=== PATIENT | male | born 1970 | race Caucasian/White ===

== ENCOUNTER → 2016-11-13 | Outpatient (CLI) | payer OTHER ==
[~2016-11-13] MED LIST: DAYPRO600 M1 PO; MOTRIN800 MG PO
[2016-11-13 10:10] LABS: HEMATOCRIT 43.2 % (42.0-52.0); HEMOGLOBIN 14.2 g/dl (14.0-18.0); MEAN CELL VOLUME 86.7 fl (80.0-94.0); MEAN CORPUSCULAR HGB 28.5 pg (27.0-31.0); MEAN CORPUSCULAR HGB CONC 32.9 g/dl (33.0-37.0); MEAN PLATELET VOLUME 10.4 fl (9.6-12.3); RED BLOOD COUNT 4.98 10*6/uL (4.50-5.90)
[2016-11-13 10:30] LABS: ALBUMIN 3.7 gm/dl (3.1-4.5); BUN 10 mg/dl (7-24); CHLORIDE 105 mmol/L (98-107); CHOLESTEROL 184 mg/dL (<200); CREATININE 0.94 mg/dL (0.70-1.30); POTASSIUM 3.8 mmol/L (3.5-5.1); SGOT/AST 25 IU/L (3-35); SGPT/ALT 43 U/L (12-78); SODIUM 141 mmol/L (136-145); TOTAL PROTEIN 7.9 gm/dL (6.4-8.2); TRIGLYCERIDES 73 mg/dl (<150); VLDL CHOLESTEROL 15 mg/dL (6-40)
[2016-11-13 10:31] LABS: ALKALINE PHOSPHATASE 69 U/L (45-117); HDL CHOLESTEROL 42 mg/dl (40-60); LDL CHOLESTEROL 127 mg/dL (9-159)
== END | disposition home or self-care (01) ==
LOC: LAB 09:05
PROVIDERS: Family Medicine
DX: K21.9 Gastro-esophageal reflux disease without esophagitis (principal); R53.83 Other fatigue; G47.00 Insomnia, unspecified; E78.00 Pure hypercholesterolemia, unspecified

== ENCOUNTER → 2019-08-06 | Outpatient (CLI) | payer OTHER ==
[2019-08-06 11:00] LABS: HEMATOCRIT 33.6 % (42.0-52.0); MEAN CELL VOLUME 63.8 fl (80.0-94.0); MEAN CORPUSCULAR HGB 18.4 pg (27.0-31.0); MEAN CORPUSCULAR HGB CONC 28.9 g/dl (33.0-37.0); MEAN PLATELET VOLUME 11.3 fl (9.6-12.3); RED BLOOD COUNT 5.27 10*6/uL (4.50-5.90); WHITE BLOOD COUNT 9.6 10*3/uL (4.8-10.8)
[2019-08-06 11:22] LABS: ALBUMIN 3.6 gm/dl (3.1-4.5); ALKALINE PHOSPHATASE 77 U/L (45-117); BUN 12 mg/dl (7-24); CHLORIDE 105 mmol/L (98-107); CHOLESTEROL 149 mg/dL (<200); CREATININE 0.85 mg/dL (0.70-1.30); HDL CHOLESTEROL 31 mg/dl (40-60); LDL CHOLESTEROL 105 mg/dL (9-159); SGOT/AST 16 IU/L (3-35); SGPT/ALT 25 U/L (12-78); SODIUM 138 mmol/L (136-145); TRIGLYCERIDES 64 mg/dl (<150); VLDL CHOLESTEROL 13 mg/dL (6-40)
== END | disposition home or self-care (01) ==
LOC: LAB 10:26
PROVIDERS: Family Medicine
DX: Z12.5 Encounter for screening for malignant neoplasm of prostate (principal); Z13.220 Encounter for screening for lipoid disorders; E74.9 Disorder of carbohydrate metabolism, unspecified; E66.9 Obesity, unspecified

== ENCOUNTER → 2019-08-20 | Outpatient (CLI) | payer OTHER ==
[2019-08-20 12:43] LABS: RETICULOCYTE % 0.81 % (0.50-2.50)
[2019-08-20 12:55] LABS: IRON 17 ug/dL (65-175); TOTAL IRON BINDING CAPACITY 347 ug/dl (250-450)
== END | disposition home or self-care (01) ==
LOC: LAB 12:16
PROVIDERS: Family Medicine
DX: R53.82 Chronic fatigue, unspecified (principal); D64.9 Anemia, unspecified

== ENCOUNTER → 2019-12-17 | Outpatient (CLI) | payer OTHER ==
[~2019-12-17] MED LIST changes: +CIPROFLOXACIN500 M4 PO; +FEROSUL325 MG PO; +METRONIDAZOLE500 M1 PO
[2019-12-17 14:17] LABS: HEMATOCRIT 42.3 % (42.0-52.0); MEAN CORPUSCULAR HGB 27.4 pg (27.0-31.0); MEAN CORPUSCULAR HGB CONC 31.9 g/dl (33.0-37.0); MEAN PLATELET VOLUME 9.9 fl (9.6-12.3); RED BLOOD COUNT 4.92 10*6/uL (4.50-5.90); RED CELL DISTRI WIDTH 15.9 % (0-14.5); WHITE BLOOD COUNT 9.7 10*3/uL (4.8-10.8)
[2019-12-17 14:48] LABS: ALBUMIN 3.6 gm/dl (3.1-4.5); ALKALINE PHOSPHATASE 68 U/L (45-117); BUN 8 mg/dl (7-24); CHLORIDE 104 mmol/L (98-107); CHOLESTEROL 173 mg/dL (<200); CREATININE 0.73 mg/dL (0.70-1.30); HDL CHOLESTEROL 44 mg/dl (40-60); LDL CHOLESTEROL 111 mg/dL (9-159); POTASSIUM 3.6 mmol/L (3.5-5.1); SGOT/AST 14 IU/L (3-35); SGPT/ALT 19 U/L (12-78); SODIUM 140 mmol/L (136-145); TOTAL PROTEIN 7.4 gm/dL (6.4-8.2); TRIGLYCERIDES 91 mg/dl (<150); VLDL CHOLESTEROL 18 mg/dL (6-40)
== END | disposition home or self-care (01) ==
LOC: LAB 14:03
PROVIDERS: ATTEND Family Medicine
DX: Z12.5 Encounter for screening for malignant neoplasm of prostate (principal); E78.00 Pure hypercholesterolemia, unspecified; D64.9 Anemia, unspecified; R53.83 Other fatigue

== ENCOUNTER 2020-02-06 07:42 | Inpatient (IN) | payer OTHER ==
[2020-02-06] VITALS (9 sets, daily range): BP systolic 113–153; BP diastolic 72–92
[~2020-02-06] VITALS: Ht 175.2 cm; Wt 104.3 kg
[~2020-02-06 07:42] MED LIST changes: -CIPROFLOXACIN500 M4 PO; -FEROSUL325 MG PO; -METRONIDAZOLE500 M1 PO
[2020-02-06 08:49] LABS: BASO # 0.1 10*3/uL (0.0-0.1); BASO % 0.3 % (0.0-1.0); EOS % 0.1 % (1.0-4.0); HEMATOCRIT 45.7 % (42.0-52.0); LYMPH # 1.3 10*3/uL (1.3-4.4); LYMPH % 7.7 % (27.0-41.0); MEAN CELL VOLUME 86.6 fl (80.0-94.0); MEAN CORPUSCULAR HGB 28.4 pg (27.0-31.0); MEAN CORPUSCULAR HGB CONC 32.8 g/dl (33.0-37.0); MEAN PLATELET VOLUME 10.2 fl (9.6-12.3); MONO # 1.2 10*3/uL (0.1-1.0); MONO % 6.6 % (3.0-9.0); NEUT # 14.8 10*3/uL (2.3-7.9); NEUT % 84.8 % (47.0-73.0); PLATELET COUNT AUTOMATED 366 10*3/uL (130-400); RED BLOOD COUNT 5.28 10*6/uL (4.50-5.90); RED CELL DISTRI WIDTH 15.1 % (0-14.5); WHITE BLOOD COUNT 17.4 10*3/uL (4.8-10.8)
[2020-02-06 08:59] LABS: ACT PARTIAL THROMBO TIME 28.6 SECONDS (20.0-32.1)
[2020-02-06 09:10] LABS: ALBUMIN 3.6 gm/dl (3.1-4.5); ALKALINE PHOSPHATASE 80 U/L (45-117); BUN 6 mg/dl (7-24); CHLORIDE 105 mmol/L (98-107); CREATININE 0.78 mg/dL (0.70-1.30); LIPASE 94 U/L (73-393); POTASSIUM 3.6 mmol/L (3.5-5.1); SGOT/AST 12 IU/L (3-35); SGPT/ALT 20 U/L (12-78); SODIUM 141 mmol/L (136-145); TOTAL PROTEIN 7.9 gm/dL (6.4-8.2); TROPONIN I < 0.015 ng/ml (<0.045)
--- NOTE | 2020-02-06 09:40 | NUR ---
PT REMAINS W/O ACUTE DISTRESS NOTED AWAITING ALL RESULTS FOR ADDITIONAL PLAN OF CARE,SAFETY PRECAUTIONS INTACT AND CALL LIGHT WITHIN REACH.
[2020-02-06 11:17] LABS: BILIRUBIN Negative (Negative); BLOOD 2+ (Negative); CLARITY Clear (Clear); COLOR Yellow (Yellow); GLUCOSE Negative (Negative); KETONE 3+ (Negative); LEUKO ESTERASE Negative (Negative); NITRITE Negative (Negative); SPECIFIC GRAVITY 1.015 (1.001-1.030); UROBILINOGEN 0.2 E.U./dl (0.0-1.0)
[2020-02-06 11:22] LABS: BACTERIA TRACE; EPITHELIAL CELLS 0-2; MUCOUS TRACE; WBC 0-2 wbc/hpf (0-5)
--- NOTE | 2020-02-06 11:22 | NUR ---
PT PROVIDED ADDITIONAL BLANKETS AND REMAINS W/O ACUTE DISTRESS NOTED.
--- NOTE | 2020-02-06 12:00 | NUR ---
PATIENT MEDICATED PER EMAR FOR PAIN. CONT PULSE OX IN PLACE. CALL TEE WITHIN REACH. IV FLUIDS/ANTIBIOTICS INFUSING PER EMAR WITHOUT DIFFICULTY.
--- NOTE | 2020-02-06 12:12 | NUR ---
PT WITH DECREASED PAIN LEVEL AFTER MEDICATION,DOWN TO A 3-4 ON 1-10 PAIN SCALE.
[2020-02-06] MEDS ORDERED: FEROSUL325 MG PO (12:17)
--- NOTE | 2020-02-06 12:40 | NUR ---
SURGERY TO ED FOR PT
--- NOTE | 2020-02-06 17:36 | NUR ---
MSDTime: 1644 A 49 year old admitted to 5E under services of YEE HIGGINS DO. Pt. arrived via bed from ER. Chief complaint: ABD PAIN ACUTE APPENDICITIS. LYNDSAY GOMEZ
--- NOTE | 2020-02-06 20:00 | NUR ---
ALERT ORIENTED X3. NO ACUTE DISTRESS NOTED. TEACHING DONE ON SPLINTING ABD WITH COUGHING/LAUGH/SNEEZING. PT. VOICED UNDERSTANDING INCISION ARE D&I..
[2020-02-07] VITALS: BP 123/78
--- NOTE | 2020-02-07 00:50 | NUR ---
PRN TYLENOL EFFECTIVE. PT TEMP 98.5
--- NOTE | 2020-02-07 02:04 | NUR ---
24 HR chart check completed.
[2020-02-07 06:53] LABS: HEMATOCRIT 42.6 % (42.0-52.0); MEAN CELL VOLUME 86.9 fl (80.0-94.0); MEAN CORPUSCULAR HGB CONC 32.2 g/dl (33.0-37.0); MEAN PLATELET VOLUME 10.5 fl (9.6-12.3); PLATELET COUNT AUTOMATED 363 10*3/uL (130-400); RED CELL DISTRI WIDTH 15.5 % (0-14.5); WHITE BLOOD COUNT 20.1 10*3/uL (4.8-10.8)
[2020-02-07 07:05] LABS: ALKALINE PHOSPHATASE 64 U/L (45-117); CHLORIDE 105 mmol/L (98-107); CREATININE 1.41 mg/dL (0.70-1.30); POTASSIUM 3.8 mmol/L (3.5-5.1); SGOT/AST 8 IU/L (3-35); SGPT/ALT 15 U/L (12-78); SODIUM 138 mmol/L (136-145); TOTAL PROTEIN 7.1 gm/dL (6.4-8.2)
--- NOTE | 2020-02-07 07:07 | NUR ---
PATIENT DID WELL THROUGH SHIFT. ENCOURAGED PATIENT TO BE UP AND SIT IN CHAIR TO EAT BREAKFAST.
[2020-02-07 07:26] LABS: PLATELET SUFFICIENCY NORMAL (NORMAL); TOTAL CELLS COUNTED 100 #CELLS
[2020-02-07 07:37] LABS: BUN 18 mg/dl (7-24)
[2020-02-07 08:00] VITALS: BP 99/64
[2020-02-07 12:00] VITALS: BP 111/76
--- NOTE | 2020-02-07 12:21 | NUR ---
Jacquard Loom Weaver in to talk to patient this morning in room 529-1 Patient states that he lives at home with his There are No steps in the home Physician: Dr. Farr [facility] Home health services: None at this time Patient's level of ADLs: Independent. Still works, No Home Needs Patient has working utilities: All are working DME: None Follow-up physician's appointment after d/c: Per Hospitalist Nurse Director Does patient want to access PORTAL?: Declines Discharge plan discussed with Pt. Pt. plans on returning Home with his . Denies Home Needs. Independent in all aspects of ADL's. Still Drives and Works. ERIKA ESCAMILLA LPN
--- NOTE | 2020-02-07 13:57 | NUR ---
PT INSTRUCTED ON INCENTIVE SPIROMETER. PT ACHEIVED 1500. PT UNDERSTANDS TO USE Q1.
[2020-02-07 16:00] VITALS: BP 135/84
--- NOTE | 2020-02-07 19:47 | NUR ---
1600 PATIENT FELT SWEATY TEMP WAS OBTAINED AND IT WAS 100.3 DR MARTIN MADE AWARE OF NO VOID, ABD DISTENTION, DIZZYNESS, TEMP. CAME UP TO FLOOR TO OBSERVE PATIENT.
--- NOTE | 2020-02-07 19:50 | NUR ---
RESIDENT HAS 250 CC VOID. RESIDENT HAD A LARGE DARK GREEN EMESIS FEELING BAD ALEC OHOKS WAS MADE AWARE OF PATIENTS CONDITION AND GAVE NEW ORDERS FOR IV ATB.
--- NOTE | 2020-02-07 19:57 | NUR ---
SPOKE WITH DR. ELAINE AT THIS TIME. PATIENT HAVING GASTRIC REFLUX AT THIS TIME. NOTIFIED HIM THAT HE HAD EMESIS EARLIER AND HAS HAD REFLUX EVER SINCE. HE STATED THAT HE WOULD PUT SOMETHING IN
[2020-02-07 20:00] VITALS: BP 114/79
--- NOTE | 2020-02-07 21:27 | NUR ---
PATIENT STILL COMPLAINING OF INDIGESTION DESPITE HAVING TUMS. NOTIFED DR. ELAINE AT THIS TIME
--- NOTE | 2020-02-07 22:00 | NUR ---
PATIENT STATES MAALOX EFFECTIVE AT THIS TIME
--- NOTE | 2020-02-07 23:53 | NUR ---
PRN TYLENOL GIVEN FOR PATIENT TEMP OF 100.5. CALL LIGHT WTIHIN REACH, WILL MONITOR
[2020-02-08] VITALS: BP 127/79
--- NOTE | 2020-02-08 02:46 | NUR ---
PATIENT SLEEPING, NO DISTRESS NOTED. BREATHING IS EASY AND REGULAR. CALL LIGHT WTIHIN REACH, WILL MONITOR
--- NOTE | 2020-02-08 03:09 | NUR ---
PATIENT COMPLAINING OF INDIGESTION AT THIS TIME. STATES IT'S REALLY BAD AND HE MIGHT THROW UP AND THE MAALOX WORKED EARLIER. NOTIFIED DR. ELAINE. HE STATED TO GIVE HIM A DOSE OF ZOFRAN AND IF THAT DOESN'T HELP HE WILL GIVE HIM ANOTHER DOSE OF MAALOX BUT THEN HE SHOULD BE GOOD UNTIL MORNING
--- NOTE | 2020-02-08 03:11 | NUR ---
GONZALO JENKINS GIVEN PER REQUEST OF DR. ELAINE FOR PATIENT COMPLAINING OF INDIGESTION WHICH HE SAID WAS GOING TO MAKE HIM THROW UP
--- NOTE | 2020-02-08 03:22 | NUR ---
PATIENT UP TO BATHROOM. STATES HE MOVED HIS BOWELS. STATES IT WAS "ALMOST DIARRHEA".
--- NOTE | 2020-02-08 04:08 | NUR ---
PATIENT STATED ZOFRAN EFFECTIVE
--- NOTE | 2020-02-08 04:26 | NUR ---
24 HR chart check completed.
[2020-02-08 07:07] LABS: MEAN CELL VOLUME 86.2 fl (80.0-94.0); MEAN CORPUSCULAR HGB 28.1 pg (27.0-31.0); MEAN CORPUSCULAR HGB CONC 32.6 g/dl (33.0-37.0); MEAN PLATELET VOLUME 10.6 fl (9.6-12.3); PLATELET COUNT AUTOMATED 403 10*3/uL (130-400); RED BLOOD COUNT 4.99 10*6/uL (4.50-5.90); RED CELL DISTRI WIDTH 15.3 % (0-14.5); WHITE BLOOD COUNT 24.6 10*3/uL (4.8-10.8)
[2020-02-08 07:33] LABS: BASOPHILS 1 % (0-1); TOTAL CELLS COUNTED 100 #CELLS
[2020-02-08 07:36] LABS: PLATELET SUFFICIENCY NORMAL (NORMAL)
[2020-02-08 07:59] LABS: CHLORIDE 101 mmol/L (98-107); CREATININE 1.49 mg/dL (0.70-1.30); POTASSIUM 3.5 mmol/L (3.5-5.1); SODIUM 137 mmol/L (136-145)
[2020-02-08 08:00] VITALS: BP 101/69
[2020-02-08 08:02] LABS: BUN 32 mg/dl (7-24)
--- NOTE | 2020-02-08 08:30 | NUR ---
PT RESTING QUIETLY N BED. NO DISTRESS NOTED. WILL MONITOR
[2020-02-08 12:00] VITALS: BP 105/74
[2020-02-08 16:00] VITALS: BP 125/84
--- NOTE | 2020-02-08 18:13 | NUR ---
PT MEDICATED WITH ZOFRAN FOR NAUSEA, AND MORPHINE FOR PAIN PT RATES PAIN 6/10 WILL MONITOR
--- NOTE | 2020-02-08 18:50 | NUR ---
PT STATES THAT MORPHINE AND ZOFRAN HELPED WILL MONITOR
[2020-02-08 20:00] VITALS: BP 135/87
--- NOTE | 2020-02-08 21:50 | NUR ---
PT RESTING IN BED WITH HOB ELEVATED. RESP-EASY AND REGULAR. PT VOICED USING INCENTIVE SPIROMETER. NO C/O PAIN AT THIS TIME. CALL LIGHT IN REACH. SEE SHIFT ASSESSMENT.
[2020-02-09] VITALS: BP 119/75
--- NOTE | 2020-02-09 00:10 | NUR ---
IVF INFUSING WITH NO PROBLEM. NEW BAG HUNG. CALL LIGHT IN REACH.
--- NOTE | 2020-02-09 05:50 | NUR ---
PT TOLERATING IVF NO PROBLEM. NO C/O AT THIS TIME. CALL LIGHT IN REACH.
[2020-02-09 06:43] LABS: HEMATOCRIT 37.8 % (42.0-52.0); MEAN CELL VOLUME 87.3 fl (80.0-94.0); MEAN CORPUSCULAR HGB 27.7 pg (27.0-31.0); MEAN CORPUSCULAR HGB CONC 31.7 g/dl (33.0-37.0); MEAN PLATELET VOLUME 10.6 fl (9.6-12.3); PLATELET COUNT AUTOMATED 324 10*3/uL (130-400); RED BLOOD COUNT 4.33 10*6/uL (4.50-5.90); RED CELL DISTRI WIDTH 15.1 % (0-14.5); WHITE BLOOD COUNT 15.6 10*3/uL (4.8-10.8)
[2020-02-09 07:06] LABS: ALBUMIN 2.3 gm/dl (3.1-4.5); ALKALINE PHOSPHATASE 46 U/L (45-117); CHLORIDE 108 mmol/L (98-107); CREATININE 0.79 mg/dL (0.70-1.30); POTASSIUM 3.5 mmol/L (3.5-5.1); SGOT/AST 9 IU/L (3-35); SGPT/ALT 10 U/L (12-78); SODIUM 141 mmol/L (136-145); TOTAL PROTEIN 6.2 gm/dL (6.4-8.2)
[2020-02-09 07:08] LABS: BUN 16 mg/dl (7-24)
[2020-02-09 07:50] LABS: BURR CELLS FEW; OVALOCYTES FEW; PLATELET SUFFICIENCY NORMAL (NORMAL); POLYCHROMASIA SLIGHT; TOTAL CELLS COUNTED 100 #CELLS
[2020-02-09 08:00] VITALS: BP 113/68
--- NOTE | 2020-02-09 08:33 | NUR ---
PT RESTING IN BED NO DISTRESS NOTED. WILL MONITOR
[2020-02-09] MEDS ORDERED: CIPROFLOXACIN500 M4 PO (10:39)
[2020-02-09] MEDS ORDERED: METRONIDAZOLE500 M1 PO (10:39)
--- NOTE | 2020-02-09 13:05 | NUR ---
Discharge instructions reviewed with patient/family. Patient receptive and verbalizes understanding. Follow-up care arranged. Written instructions given to patient/family. JOANNE VASQUEZ
== END 2020-02-09 13:07 | disposition home or self-care (01) | DRG 854 ==
LOC: ED 07:42 → EDHOLD 11:58 → 5E 11:58
PROVIDERS: Emergency Medicine; Internal Medicine; Surgery; ADMIT Student in an Organized Health Care Education/Training Program; ATTEND Student in an Organized Health Care Education/Training Program
PROC: 0DTJ4ZZ Resection of Appendix, Percutaneous Endoscopic Approach (ICD-10-PCS; principal; 2020-02-06)
DX: A41.9 Sepsis, unspecified organism (principal); K35.80 Unspecified acute appendicitis; R73.9 Hyperglycemia, unspecified; R31.9 Hematuria, unspecified; E61.1 Iron deficiency; K40.90 Unilateral inguinal hernia, without obstruction or gangrene, not specified as recurrent; F17.210 Nicotine dependence, cigarettes, uncomplicated; Z71.6 Tobacco abuse counseling; Z79.899 Other long term (current) drug therapy

== ENCOUNTER → 2020-07-31 | Outpatient (CLI) | payer OTHER ==
[~2020-07-31] MED LIST changes: +CIPROFLOXACIN500 M4 PO; +FEROSUL325 MG PO; +METRONIDAZOLE500 M1 PO
[2020-07-31 08:17] LABS: HEMATOCRIT 43.9 % (42.0-52.0); MEAN CELL VOLUME 92.4 fl (80.0-94.0); MEAN CORPUSCULAR HGB 29.3 pg (27.0-31.0); MEAN CORPUSCULAR HGB CONC 31.7 g/dl (33.0-37.0); MEAN PLATELET VOLUME 10.3 fl (9.6-12.3); RED BLOOD COUNT 4.75 10*6/uL (4.50-5.90); RED CELL DISTRI WIDTH 14.2 % (0-14.5)
[2020-07-31 08:57] LABS: ALBUMIN 3.7 gm/dl (3.1-4.5); BUN 17 mg/dl (7-24); CHLORIDE 107 mmol/L (98-107); CHOLESTEROL 200 mg/dL (<200); CREATININE 0.87 mg/dL (0.70-1.30); POTASSIUM 3.8 mmol/L (3.5-5.1); SGOT/AST 10 IU/L (3-35); SGPT/ALT 16 U/L (12-78); SODIUM 141 mmol/L (136-145); TOTAL PROTEIN 7.3 gm/dL (6.4-8.2); TRIGLYCERIDES 66 mg/dl (<150)
[2020-07-31 09:01] LABS: ALKALINE PHOSPHATASE 58 U/L (45-117); LDL CHOLESTEROL 140 mg/dL (9-159)
== END | disposition home or self-care (01) ==
LOC: LAB 07:51
PROVIDERS: ATTEND Family Medicine
DX: Z12.5 Encounter for screening for malignant neoplasm of prostate (principal); E78.00 Pure hypercholesterolemia, unspecified; R10.9 Unspecified abdominal pain; D64.9 Anemia, unspecified; K29.70 Gastritis, unspecified, without bleeding